=== PATIENT | male | born 1990 | race Caucasian/White ===

== ENCOUNTER 2021-04-18 08:39 | Emergency (ER) | payer OTHER ==
[~2021-04-18] VITALS: Ht 167.6 cm; Wt 99.8 kg
[2021-04-18 08:45] VITALS: BP 100/45
--- NOTE | 2021-04-18 08:45 | NUR ---
PT W/C ASSISTED TO BED1.
--- NOTE | 2021-04-18 09:04 | NUR ---
LACERATION TO RIGHT UPPER THIGH ABOVE KNEE. WOUND IS CLEAN. NO LOSS OF SENSATION RELATED TO INJURY, NO SYMPTOMS OF VASCULAR COMPROMISE. PATIENT HAS FULL RANGE OF MOTION. NO OTHER SYMPTOMS. TETANUS UP TO DATE. Addendum: 04/18/21 at 0926 by [email or web address] PATIENT NOT ACTIVILY BLEEDING
[2021-04-18] MEDS: LIDOCAINE MPF 1% 10 MG/ML VIAL INJ ONE (09:24)
[2021-04-18] MEDS: BACITRACIN OINT 500 UNITS/GM PKT TP ONE (09:25)
--- NOTE | 2021-04-18 09:46 | NUR ---
BACITRACN APPLIED TO PT'S SUTURES, WRAPPED WITH NON-ADHERANT AND GAUZE ROLL.
[2021-04-18] MEDS ORDERED: IBUP-2213 PO (09:53)
[2021-04-18 10:10] VITALS: BP 104/64
--- NOTE | 2021-04-18 10:10 | NUR ---
Patient discharged with v/s stable. Written and verbal after care instructions given and explained with teachback. Patient alert, oriented and verbalized understanding of instructions. Ambulatory with steady gait. All questions addressed prior to discharge. ID band removed. Patient advised to follow up with PMD. Rx of IBUPROFEN given. Patient educated on indication of medication including possible reaction and side effects. Opportunity to ask questions provided and answered.
== END 2021-04-18 10:10 | disposition home or self-care (01) ==
LOC: MED 08:39
DX: S71.111A Laceration without foreign body, right thigh, initial encounter (principal); W26.8XXA Contact with other sharp object(s), not elsewhere classified, initial encounter; Y93.89 Activity, other specified; Y92.89 Other specified places as the place of occurrence of the external cause; Y99.8 Other external cause status
CPT/HCPCS: 12002; 99282; J2001